=== PATIENT | male | born 1985 | race Caucasian/White ===

== ENCOUNTER 2017-10-11 00:11 | Emergency (ER) | payer MEDICAID ==
[~2017-10-11] VITALS: Ht 175.3 cm; Wt 99.8 kg
[~2017-10-11 00:11] MED LIST: FAMO20TA44 PO; OMEP20CA10 PO
[2017-10-11] MEDS ORDERED: SULF1TAB49 PO (01:03)
[2017-10-11 01:19] VITALS: BP 143/96
== END 2017-10-11 01:20 | disposition home or self-care (01) ==
LOC: ER 00:11
DX: L73.1 Pseudofolliculitis barbae (principal); K21.9 Gastro-esophageal reflux disease without esophagitis; Z88.0 Allergy status to penicillin
CPT/HCPCS: 99283